=== PATIENT | male | born 1975 | race Caucasian/White ===

== ENCOUNTER 2018-05-29 21:45 | Inpatient (IN) | payer BC ==
[2018-05-29] MEDS ORDERED: ACETAMINOPHEN 325 MG TAB PO (23:30)
[2018-05-29] MEDS ORDERED: HYDROCODONE/APAP (5/325) TAB PO (23:30)
[2018-05-29] MEDS ORDERED: ALBUTEROL/IPRATROPIUM (NEB) 3 ML AMP HHN (23:30)
[2018-05-29] MEDS ORDERED: ZOLPIDEM 5 MG TAB PO (23:30)
[2018-05-30] MEDS: CEFTRIAXONE 1 GM/50 ML (PMX) 50 ML IVPB (00:26)
[2018-05-30] MEDS ORDERED: PANTOPRAZOLE (EC) 40 MG TAB PO (06:00)
[2018-05-30] MEDS ORDERED: ENOXAPARIN 80 MG/0.8 ML SYG SC (09:00)
== END 2018-05-30 01:05 | disposition left against medical advice (07) | DRG 300 ==
LOC: 5EC 21:45
DX: I82.409 Acute embolism and thrombosis of unspecified deep veins of unspecified lower extremity (principal); L03.90 Cellulitis, unspecified

== ENCOUNTER 2018-05-30 05:07 | Inpatient (IN) | payer BC ==
[2018-05-30 05:53] LABS: ADD MAN DIFF? NO
[2018-05-30 05:56] LABS: WHITE BLOOD COUNT 8.2 10^3/ul (4.8-10.8)
[2018-05-30 05:56] LABS: BASOPHILS % 0.4 % (0.0-2.0); EOSINOPHILS # 0.3 10^3/ul (0.0-0.5); EOSINOPHILS % 3.9 % (0.0-7.0); HEMATOCRIT 44.3 % (42.0-52.0); HEMOGLOBIN 14.9 g/dl (14.0-18.0); LYMPHOCYTES # 2.1 10^3/ul (0.8-2.9); MEAN CORPUSCULAR HEMOGLOBIN 29.4 pg (29.0-33.0); MEAN CORPUSCULAR HGB CONC 33.6 g/dl (32.0-37.0); MEAN CORPUSCULAR VOLUME 87.5 fl (82.0-101.0); MEAN PLATELET VOLUME 9.3 fl (7.4-10.4); MONOCYTE # 0.7 10^3/ul (0.3-0.9); MONOCYTES % 8.3 % (0.0-11.0); PLATELET COUNT 189 10^3/UL (140-415); RED BLOOD COUNT 5.06 10^6/ul (4.70-6.10)
[2018-05-30 06:11] LABS: ALANINE AMINOTRANSFERASE 25 IU/L (13-69); ALBUMIN 3.7 g/dl (3.3-4.9); ALBUMIN/GLOBULIN RATIO 1.15; ALKALINE PHOSPHATASE 63 IU/L (42-121); ANION GAP 7 (5-13); ASPARTATE AMINO TRANSFERASE 22 IU/L (15-46); BILIRUBIN,INDIRECT 0.4 mg/dl (0-1.1); BILIRUBIN,TOTAL 0.4 mg/dl (0.2-1.3); BLOOD UREA NITROGEN 14 mg/dl (7-20); CALCIUM 8.8 mg/dl (8.4-10.2); CARBON DIOXIDE 27 mmol/L (21-31); CHLORIDE 106 mmol/L (97-110); CREATININE 0.76 mg/dl (0.61-1.24); Estimated GFR > 60 mL/min (>60); GLUCOSE 110 mg/dl (70-220); LIPASE 37 U/L (23-300); POTASSIUM 4.1 mmol/L (3.5-5.1); SODIUM 140 mmol/L (135-144); TOTAL PROTEIN 6.9 g/dl (6.1-8.1)
[2018-05-30] MEDS ORDERED: ONDANSETRON 4 MG INJ IV (07:00)
[2018-05-30] MEDS ORDERED: ACETAMINOPHEN 325 MG TAB PO (07:00)
[2018-05-30] MEDS: VANCOMYCIN 1 GM (PMX) 250 ML IVPB (07:34)
[2018-05-30] MEDS: PIPER-TAZO 3.375 GM IV (PMX) 100 ML IVPB (07:34)
[2018-05-30] MEDS ORDERED: VANCOMYCIN IV PER PHARMACY XX (11:00)
[2018-05-30] MEDS: CEFEPIME 1GM/50 ML (PMX) 50 ML IVPB (12:45)
[2018-05-30] MEDS ORDERED: VANCOMYCIN HCL 1.75 GM in SOD CHLORIDE 0.9% 500 ML IVPB ×2 (13:00→23:00)
[2018-05-30] MEDS ORDERED: VANCOMYCIN HCL 2 GM in SOD CHLORIDE 0.9% 500 ML IVPB (14:00)
== END 2018-05-30 13:55 | disposition left against medical advice (07) | DRG 603 ==
LOC: E/R 05:07 → PP2 06:57
DX: L03.116 Cellulitis of left lower limb (principal)
CPT/HCPCS: 36415; 73630-LT; 80053; 83690; 85025; 87040; 99285-25